=== PATIENT | male | born 1980 | race Caucasian/White ===

== ENCOUNTER 2017-01-23 09:08 | Inpatient (IN) | payer OTHER ==
[2017-01-23] VITALS (17 sets, daily range): BP systolic 129–160; BP diastolic 68–95; PULSE 72–116; RESP 14–30; O2SAT 94–100
[~2017-01-23] VITALS: Ht 162.6 cm; Wt 80.0 kg
--- NOTE | 2017-01-23 09:12 | ED.REPORT ---
HPI-Extremity Problem Lower Date of Service Jan 23, 2017 ED Provider: Nursing Notes Stated Complaint: FEMUR INJURY General Time Seen by MD: 09:11 Edwin Monroy MD Jan 23, 2017 09:12
--- NOTE | 2017-01-23 09:17 | ED.REPORT ---
HPI-Extremity Problem Lower Date of Service Jan 23, 2017 ED Provider: Edwin Monroy MD This is a 36 year old male presenting to the emergency department via EMS due to right leg deformity that occurred just prior to arrival after stepping off into an 6-8 inch hole at while at work. Reports R leg pain above the knee that is rated at 8/10. Denies change LOC. Last PO intake at 07:30 today.En route he was given Ketamine 75 mg, Fentanyl 100 mcg, and Zofran 4 mg. En route, HR 74 and blood pressure 128/74. He denies tetanus immunization and has never been vaccinated previously. Patient denies chest pain, SOB, dizziness, abdominal pain, numbness or tingling in extremities, headache, neck pain, back pain, nausea, or vomiting at this time. Nursing Notes Stated Complaint: FEMUR INJURY Nursing Notes Reviewed: Yes ([employer], meds not reconciled) Allergies: Coded Allergies: No Known Allergies (Unverified , 01/23/17) No Active Prescriptions or Reported Meds General Time Seen by MD: 09:17 Chief Complaint Leg injury right Hx Obtained From: Patient Arrived By: Ambulance Onset Occurred: Just prior to arrival Symptom Duration: Since onset Caused by: Accidental Severity: Current: Moderate Pertinent Negative: Pt denies other symptoms Immunizations: None up to date Recent Healthcare: No recent doctor visit, No recent hospitalization Similar Sx Previous: No Risk-Extremity Prob Lower Well's Criteria for DVT Well's DVT Score: 0 pts (low risk 5%) Past Medical History Past Medical History Patient denies hx of tetanus or other vaccination (and declines offer of immunization initation in the ED) Denies Past Surgical History Denies Smoking History Never Smoker Social History Alcohol Use: Denies alcohol use Ambulatory Status Independent Review of Systems Constitutional: Denies: Chills, Fever Musculoskeletal: Reports: Extremity pain, Extremity swelling, Denies: Back pain, Neck pain Neurologic: Denies: Change LOC, Weakness Complete sys rev & neg: except as marked. Physical Exam Initial Vital Signs Vital Signs (First) Date Time Temp Pulse Resp B/P Pulse Ox O2 Delivery O2 Flow Rate FiO2 01/23/17 09:34 36.8 90 30 137/90 100 Room Air -- Initial VS: Reviewed General/Constitutional: Well-developed, Well-nourished Head / Eyes: Atraumatic, Normocephalic, PERRL ENT: Mucous membranes moist, Conjunctiva normal, No scleral icterus Neck: Supple, Non-tender, Full range of motion Respiratory: Breath sounds normal, Clear to auscultation, No respiratory distress Cardiovascular: Regular rate & rhythm, Heart sounds normal, Intact distal pulses Abdomen / GI: Soft, Non-tender, No guarding, No rebound, No distention Upper Extremities: Vascular intact, Neuro intact, No swelling, No tenderness Skin: Warm, Dry, No cyanosis Neurologic: Alert, Oriented, Nonfocal Psychiatric: Mood/affect normal, Behavior normal, Normal thought content Lower Extremity / Pelvis / MS: Neurologic intact, Vascular intact Deformity in right distal knee and femur. Swelling and pain causing decreased range of motion. There is a small abrasion that does not go through the dermis. Calf compartments are soft, pulses intact. Ankle / Foot: Vascular intact Very small 1mm very superficial abrasion distal right leg along with a larger, but even more superficial abrasion. No findings of an open fracture. Interpretation & Diagnostics R LEG X-RAY IMPRESSION: Comminuted angulated distal femur fracture as discussed, with what appears to be both diagonal and vertically oriented fracture planes. Dictated by: Rakesh Chambers M.D. on 01/23/2017 at 9:48 Approved by: Rakesh Chambers M.D. on 01/23/2017 at 9:49 Lab Results Interpretation Result Diagram: 01/23/17 1040 01/23/17 1040 Test 01/23/17 10:40 White Blood Count 13.3th/mm3 (3.8-10.1) Red Blood Count 4.99mil/mm3 (4.40-5.80) Hemoglobin 16.2g/dL (13.8-17.2) Hematocrit 45.0% (41.0-50.0) Mean Corpuscular Volume 90.2fL (81-100) Mean Corpuscular Hemoglobin 32.5pg (27.0-35.0) Mean Corpuscular Hemoglobin Concent 36.0% (32.0-37.0) Red Cell Distribution Width 12.7% (12.3-15.4) Platelet Count 256bil/L (150-400) Neutrophils (%) (Auto) 83.2% (40-74) Lymphocytes (%) (Auto) 10.5% (14-46) Monocytes (%) (Auto) 5.7% (4-12) Eosinophils (%) (Auto) 0.2% (0-5) Basophils (%) (Auto) 0.2% (0-3) Prothrombin Time 10.7sec (8.1-12.5) Prothromb Time International Ratio 1.00ratio Sodium Level 138mEq/L (134-144) Potassium Level 4.2mEq/L (3.5-5.2) Chloride Level 99mEq/L (97-108) Carbon Dioxide Level 24mmol/L (18-29) Blood Urea Nitrogen 10mg/dL (6-20) Creatinine 0.67mg/dL (0.76-1.27) Estimat Glomerular Filtration Rate 144mL/min (>59) Glucose Level 130mg/dL (60-99) Calcium Level 8.7mg/dL (8.5-10.1) Total Bilirubin 0.8mg/dL (0.0-1.2) Aspartate Amino Transf (AST/SGOT) 29U/L (0-50) Alanine Aminotransferase (ALT/SGPT) 29U/L (0-44) Alkaline Phosphatase 81U/L (25-150) Total Protein 7.1g/dL (6.4-8.4) Albumin 4.2g/dL (3.4-5.0) Lab Results Interpretation: CBC mild leukocytosis, likely [id number] features of clinical infection CMP normal Re-Eval/Medical Decision Med Decision/Clinical Course This is a previously healthy 36-year-old male who presents by EMS with the right lower extremity injury. The patient suddenly walked through the door, and allegedly the floor panel had been removed to allow some work so he stepped through the whole hopping about 6 inches, and in the process is right leg was injured, with concern for possible femur or knee fracture. Patient required fentanyl, some disassociative ketamine, and ondansetron prior to arrival and is now in much improved condition. He denies any additional injuries or complaints. On exam he has a deformity of the distal femur/knee. I do not appreciate gross hemarthrosis of the knee. The leg is neurovascularly intact. There is a very superficial abrasion, does not appear to fully come penetrate dermis - in other words are no findings of a open fracture. However did offer the patient vaccination, consistent turns out he reports or claims that he has not been vaccinated and all-but he declined vaccination here as well. Plain radiographs demonstrate a distal displaced femur fracture. Discussed with orthopedist, and the plan is a knee immobilizer, admission, nothing by mouth status, and a CT scan for operative planning. Source of Hx: EMS Re-Evaluation/Progress : Time of Eval: 10:08 Re-Evaluation/Progress Note: Discussed lab results and need for admission, pt understands and agrees with plan, all questions addressed. Consultation #1: Referral / Consult Name: Dieudonne Mensah DO Consulted With: Orthopedic Call Returned at: 09:47 Honing Machine Operator Tool: Agrees with eval, Agrees with plan Note: Dr. Mensah will review imaging Consultation #2: Referral / Consult Name: Dieudonne Mensah DO Call Returned at: 10:00 Honing Machine Operator Tool: Agrees with eval, Agrees with plan Note: Recommends knee immobilzer and plan for surgery later today or tomorrow Differential Diagnosis: Positive: Fracture, Negative: Abscess, Ankle dislocation, Calcaneal fracture, Cellulitis, Compartment syndrome, Hip fracture, Intertrochanteric fractur, Pelvic fracture, Superficial thrombophleb, Torus fracture, Tripod fracture Counseled Regarding: Diagnosis, Lab results, Need for follow-up, Need for admission Discharge & Departure Impression: Primary Impression: Fracture, femur, distal Encounter type: initial encounter Fracture type: closed Fracture morphology : other fracture Laterality: right Qualified Code: S72.491A - Other fracture of lower end of right femur, initial encounter for closed fracture Disposition: ADMITTED TO HOSPITAL Discharge Condition All VS Reviewed: Yes Condition: Stable Scribe Attestation Portions of this note were transcribed by Saravanan Vazquez. I, Dr. Gomez personally performed the history, physical exam and medical decision-making; I reviewed and confirmed the accuracy of the information in the transcribed note. Signed by Latha Long, 01/23/2017 at 18:00. Vijay Gomez MD Jan 23, 2017 09:17 SARAVANAN VAZQUEZ Jan 23, 2017 09:25
[2017-01-23] MEDS ORDERED: Ondansetron 2 mg/mL 2 mL Inj IVPUSH PRN ×4 (09:25→20:50)
[2017-01-23] MEDS: HYDROmorphone 0.5 mg/0.5 mL iSecure Syringe IVPUSH PRN ×2 (09:41→10:30)
--- NOTE | 2017-01-23 09:50 | DRSVH ---
PROCEDURE: X-RAY RIGHT FEMUR, TWO VIEWS ([id number]) INDICATIONS: trauma TECHNIQUE: 2 views of the femur were acquired. COMPARISON: None. FINDINGS: Bones: No dislocations. No suspicious bony lesions. There is a comminuted fracture involving the d istal femur, the diagonal through the distal metadiaphyseal junction and vertically oriented extendin g into the intercondylar notch, with dorsal angulation below the fracture plane Soft tissues: No suspicious soft tissue calcifications or masses. IMPRESSION: Comminuted angulated distal femur fracture as discussed, with what appears to be both santhosh gonal and vertically oriented fracture planes. Dictated by: Rakesh Chamebrs M.D. on 01/23/2017 at 9:48 Approved by: Rakesh Chambers M.D. on 01/23/2017 at 9:49
[2017-01-23] MEDS ORDERED: Dextrose 5% 500 ML IV SCH (10:12)
[2017-01-23] MEDS ORDERED: HYDROmorphone PCA 0.2 mg/mL 30 mL Inj IV PRN (10:15)
[2017-01-23] MEDS ORDERED: Alum-Mag Hydrox-Simeth 30 mL Suspension PO PRN (10:15)
[2017-01-23] MEDS ORDERED: HYDROmorphone 1 mg/mL Inj IVPUSH ONE (10:25)
[2017-01-23] MEDS: 0.9% Sodium Chloride 1,000 ML IV SCH ×3 (10:58→20:49)
[2017-01-23 11:01] LABS: BASOPHILS % (AUTO) 0.2 % (0-3); EOSINOPHILS % (AUTO) 0.2 % (0-5); MONOCYTES % (AUTO) 5.7 % (4-12); Mean Corpuscular Hemoglobin 32.5 pg (27.0-35.0); Mean Corpuscular Volume 90.2 fL (81-100); NEUTROPHILS % (AUTO) 83.2 % (40-74); Platelet Count 256 bil/L (150-400)
--- NOTE | 2017-01-23 11:59 | DRSVH ---
PROCEDURE: CT FEMUR RIGHT W/O CONTRAST ([id number]) INDICATIONS: distal femur fx, operative planning for Dr. Mensah TECHNIQUE: Noncontrast 3 mm axial sections acquired of the right femur, with coronal and sagittal reformats. Fo r radiation dose reduction, the following was used: automated exposure control, adjustment of mA and /or kV according to patient size. COMPARISON: [facility], CR, XR FEMUR 2VW RT, 01/23/2017, 9:07. FINDINGS: Image quality: Excellent. Bones: Severely comminuted and displaced fracture of the distal femur. There is lateral displacement of the dominant distal femur fracture fragments approximately one shaft width. There is posterior ang ulation of the distal femur fracture fragments. There is also overriding appearance. Scattered areas of intraosseous gas are present in the distal femur diametaphysis. Remaining osseous structures appear intact. There is anatomic alignment to the knee and hip joints. Soft tissues: Knee joint effusion is seen. IMPRESSION: Severely comminuted and displaced distal femur fracture as detailed above. Dictated by: Alexey Lopez M.D. on 01/23/2017 at 11:53 Approved by: Alexey Lopez M.D. on 01/23/2017 at 11:57
--- NOTE | 2017-01-23 12:00 | NUR ---
Admit Pt was admitted to [facility] room 1005 via stretcher. Pt was slid from stretcher to bed 4 person assist with minimal pain. Pt rates pain at 6/10. FLOAT BUILDER Dilaudid to be started. Right leg in brace with 4x4s covering wounds. 4x4s look C/D/I. Pedal pulse present. Pt states he has some baseline numbness in both feet but nothing abnormal. Feet pink and cap refill WNL. BODY DESIGN CHECKER placed. Pt NPO since 729. Will continue to monitor.
--- NOTE | 2017-01-23 16:32 | NUR ---
Pt off Unit Pt off unit to OR. Pt let his family know. Belongings stayed in pt room. SENIOR SALES REPRESENTATIVE d/c'd. Saline Deon'd.
[2017-01-23] MEDS ORDERED: CeFAZolin Inj 2 gm / 50mL D5W IV ONE (16:46)
--- NOTE | 2017-01-23 16:50 | PCM.HPANE ---
Patient Data Surgeon Admitting Provider:Dieudonne Mensah DO Attending Provider:Dieudonne Mensah DO Primary Care Physician:Winter Other Provider:Deven Prabhakar Anesthesia Reason for Visit Rt Femur Fx Ht/WT & BMI Height (Feet): 5 Height (Inches): 4.00 Weight (Kilograms): 80.000 Body Mass Index 30.11 Allergies Coded Allergies: No Known Allergies (Unverified , 01/23/17) Past Anesthesia History Anesthesia History: Denies:: Abnormal Airway, Difficult Intubation Diabetes History Hx Diabetes?: No MRSA MRSA: No Medications Hypertension Medication: No Home Meds Incl Beta Bhavesh: No No Active Prescriptions or Reported Meds History History of ENT Problems?: No HEENT History: Denies:: Abnormal Airway Difficult Intubation Denture Type: None Teeth Condition: Within Normal Limits Hx of Heart Problems?: No Cardiovascular History: Denies:: AICD Abdominal Aortic Aneurism Atrial Fibrillation Cardiac Surgery Chest Pain Congestive Heart Failure Coronary Artery Disease Edema Heart Murmur Hypertension Irregular Heartbeat Pacemaker Peripheral Vascular Rheumatic Fever Thrombophlebitis Valvular Heart Disease Hx of Respiratory Problem?: No Respiratory History: Denies:: Asthma COPD Chest Surgery Cough Dyspnea Emphysema Hemoptysis Oxygen Administration Pneumonia Pulmonary Embolism Tuberculosis Use of C-PAP Machine Use of Inhalers / NEBS Hx Neurologic Problems?: No Neurological History: Denies:: Alzheimer's Disease CVA Dementia Dizziness Headaches Multiple Sclerosis Parkinson's Disease Peripheral Neuropathy Seizures TIA Hx of GI Problems?: No Gastrointestinal History: Denies:: Cirrhosis Diverticulitis Gall Bladder Disease Gastroesphageal Reflux Gastrointestinal Bleeding Heartburn Hepatitis Hiatal Hernia Liver Disease Rectal Bleeding Hx of Problems?: No Genitourinary History: Denies:: HX of Hemodialysis Kidney Stones Urinary Tract Infection Male Hx: Denies:: Prostate Problems Scrotal Mass Testicular Surgery Hx Musculoskeletal Problems?: Yes (RIGHT FEMUR FX) Musculoskeletal History: Denies:: Back Injury Degenerative Joint Fibromyalgia Joint Replacement Musculoskeletal Trauma Myasthenia Gravis Osteoarthritis Rheumatoid Arthritis Systemic Lupus Other History/Comment RIGHT FEMUR FX Hx of Psycho/Social Problems?: No Psycho Social History: Denies:: Anxiety Bipolar Disorder Hx Depression Suicide Attempt Hx Surgeries?: Yes Hx Any Other Health Problems?: No History Blood Transfusions: Positive for:: Accept Blood Products? Denies:: Blood Transfusions Hx Diabetes: No Hx Alcohol Use: Yes (once every few months)Hx Substance Use: No Smoking Status: Never Smoker Have You Smoked inLast 12 mo: No Stop/Bang Treated for Sleep Apnea?: No Do You Have a CPAP Machine?: No Risk Assessment Category Category 1A: Patient has history of documented sleep apnea, and HAS NOT received any narcotic, sedative or anesthesia administration during this stay. Category 1B: Patient has history of documented sleep apnea, and HAS received any narcotic , sedative or anesthesia administration during this stay Category 2: Patient has SUSPECTED Obstructive Sleep Apnea, and HAS received any narcotic , sedative or anesthesia administration during this stay. Category 3: Patient has SUSPECTED Obstructive Sleep Apnea and HAS NOT received narcotic, sedative or anesthesia administration during this stay. Category 4: Outpatient in Procedural Areas with known sleep apnea or who screen positive for High Risk via the STOP/BANG questionnaire. Exam Exam Vital Signs Vital Signs Date Time Temp Pulse Resp B/P Pulse Ox O2 Delivery O2 Flow Rate FiO2 01/23/17 16:32 16 98 01/23/17 14:00 16 97 01/23/17 12:05 16 96 01/23/17 12:01 36.7 72 18 160/95 98 Room Air 01/23/17 11:22 89 14 147/91 100 01/23/17 09:34 36.8 90 30 137/90 100 Room Air General Appearance: Alert, Oriented X3, Cooperative, No Acute Distress HEENT/AIRWAY: MP 2 Lungs: Clear to Auscultation, Normal Air Movement Heart: Exam Unremarkable, Regular Rate/Rhythm, No Murmurs/Rubs/Gallops Meds/Labs/Diagnostics Admission Meds Current Medications Sodium Chloride (Normal Saline) 1,000 ml @ 100 mls/hr Q10H IV Last administered on 01/23/17 11:58; Start 01/23/17 at 10:12 Hydromorphone HCl (Dilaudid Inj) 1 mg ONCE ONCE IVPUSH Last administered on 10:27; Start 01/23/17 at 10:25; Stop 01/23/17 at 10:26; Status DC Midazolam HCl (Versed Inj) 2 mg ONCE ONCE IVPUSH Last administered on 10:58; Start 01/23/17 at 10:35; Stop 01/23/17 at 10:36; Status DC Labs Test 01/23/17 10:40 White Blood Count 13.3th/mm3 (3.8-10.1) Red Blood Count 4.99mil/mm3 (4.40-5.80) Hemoglobin 16.2g/dL (13.8-17.2) Hematocrit 45.0% (41.0-50.0) Mean Corpuscular Volume 90.2fL (81-100) Mean Corpuscular Hemoglobin 32.5pg (27.0-35.0) Mean Corpuscular Hemoglobin Concent 36.0% (32.0-37.0) Red Cell Distribution Width 12.7% (12.3-15.4) Platelet Count 256bil/L (150-400) Neutrophils (%) (Auto) 83.2% (40-74) Lymphocytes (%) (Auto) 10.5% (14-46) Monocytes (%) (Auto) 5.7% (4-12) Eosinophils (%) (Auto) 0.2% (0-5) Basophils (%) (Auto) 0.2% (0-3) Prothrombin Time 10.7sec (8.1-12.5) Prothromb Time International Ratio 1.00ratio Sodium Level 138mEq/L (134-144) Potassium Level 4.2mEq/L (3.5-5.2) Chloride Level 99mEq/L (97-108) Carbon Dioxide Level 24mmol/L (18-29) Blood Urea Nitrogen 10mg/dL (6-20) Creatinine 0.67mg/dL (0.76-1.27) Estimat Glomerular Filtration Rate 144mL/min (>59) Glucose Level 130mg/dL (60-99) Calcium Level 8.7mg/dL (8.5-10.1) Total Bilirubin 0.8mg/dL (0.0-1.2) Aspartate Amino Transf (AST/SGOT) 29U/L (0-50) Alanine Aminotransferase (ALT/SGPT) 29U/L (0-44) Alkaline Phosphatase 81U/L (25-150) Total Protein 7.1g/dL (6.4-8.4) Albumin 4.2g/dL (3.4-5.0) Plan Impression Patient chart reviewed, patient interviewed and anesthestic plan with risks, benefits, and alternatives discussed, and informed consent obtained. ASA Physical Status: ASA1 Normal Healthy Anesthetic Plan: GA Bene/Risks/Altern/Consents: Yes HP Complete Prior to Induction: Yes Blas Restrepo MD Jan 23, 2017 16:50
[2017-01-23] MEDS ORDERED: Lactated Ringer's 500 ML IV PRN (16:51)
[2017-01-23] MEDS ORDERED: Lactated Ringer's 1,000 ML IV ONE (16:51)
[2017-01-23] MEDS ORDERED: Lactated Ringer's 1,000 ML IV SCH (16:51)
[2017-01-23] MEDS ORDERED: fentaNYL-PF 50 mCg/mL 2 mL Inj IVPUSH PRN (16:55)
[2017-01-23] MEDS ORDERED: EPHEDrine Sulfate 50 mg/mL Inj IVPUSH PRN (16:55)
[2017-01-23] MEDS ORDERED: Dexamethasone 4 mg/mL Inj IVPUSH PRN (16:55)
[2017-01-23] MEDS ORDERED: Phenylephrine 10,000 mCg/mL Inj IVPUSH PRN (16:55)
[2017-01-23] MEDS ORDERED: MetoCLOpramide 5 mg/mL 2 mL Inj IVPUSH PRN (16:55)
[2017-01-23] MEDS ORDERED: fentaNYL-PF 50 mCg/mL 2 mL Inj ONE ×2 (17:16→21:15)
[2017-01-23] MEDS ORDERED: Propofol 10,000 mCg/mL 20 mL Inj ONE (17:16)
[2017-01-23] MEDS ORDERED: Ondansetron 2 mg/mL 2 mL Inj ONE (17:16)
[2017-01-23] MEDS ORDERED: Dexamethasone 4 mg/mL Inj ONE (17:16)
[2017-01-23] MEDS ORDERED: Ketamine 10 mg/mL 20 mL Inj ONE (17:16)
--- NOTE | 2017-01-23 18:21 | HP ---
[address] [address] HISTORY AND PHYSICAL PATIENT: RANDI MILES : 1980 MR#: [id number] ADMIT: 01/23/2017 JOB ID: [id number] CHIEF COMPLAINT: Right knee pain. HISTORY OF PRESENT ILLNESS: The patient is a 36-year-old male who was at a job site at work when he stepped through a doorway onto an open floor which he did not realize was open and fell about 3 feet through the floor landing in some pipes, etc. He had immediate onset of severe acute pain and had to be pulled out of the hole and given sedation. He was unable to ambulate after the fall and had severe pain. He works as an product safety engineer. PAST MEDICAL HISTORY: Significant for none stated. ALLERGIES: No known drug allergies. PAST SURGICAL HISTORY: Gypsum teeth removal and he had some postop nausea and vomiting. MEDICATIONS: None. SOCIAL HISTORY: The patient does not smoke. PHYSICAL EXAMINATION: Blood pressure 160/95, pulse rate 72, respirations 18, temperature 36.7. He is alert and cooperative, in no acute distress. He denies any pain with range of motion of his bilateral upper extremities. No pain with range of motion of the cervical spine. Lungs are clear to auscultation. Heart has regular rate and rhythm. Right knee has an abrasion over the superior patellar region with a small wound with bleeding and a 2nd abrasion over the distal tibial tubercle region. Otherwise, his skin is intact. He has pain with any attempt at range of motion of the knee. He is able to move his toes. His foot is warm, pink, and well perfused. His sensation of the foot is intact. Dorsalis pedis pulse +2. No calf pain or tenderness. No pain with range of motion of the left lower extremity. IMAGING: X-rays demonstrate right distal femur comminuted fracture with intercondylar split. CT scan demonstrates simple intercondylar split with emphysema ASSESSMENT: Grade 1 open Right distal femur fracture with intercondylar split extension. PLAN: We discussed treatment options for this, and I recommend open reduction and internal fixation of his fracture. We discussed the risks, benefits, and possible complications of the procedure. All questions were answered and the patient wished to proceed. Will plan for surgery today as the patient is in significant distress, and I am concerned about continued ongoing blood loss if we delay surgery and also that he would likely develop muscle spasms and could cause additional muscular damage with a delay in surgery. Anticipate that he will be in the hospital for 2-3 days and will need to be nonweightbearing on the right lower extremity for 8-12 weeks. Anticipate that he will need to be off of work for 4-6 months. LISSA
[2017-01-23] MEDS ORDERED: Ropivacaine-PF 0.5% 30 mL Inj INFILTRATE ONE (20:30)
[2017-01-23] MEDS ORDERED: HYDROmorphone 2 mg/mL Inj IVPUSH PRN (20:50)
[2017-01-23] MEDS ORDERED: Polyethylene Glycol (PEG) 17 Gm Powder PO PRN (20:50)
[2017-01-23] MEDS ORDERED: Magnesium Hydroxide 10 mL Oral Concentration PO PRN (20:50)
[2017-01-23] MEDS ORDERED: HYDROcodone-APAP 7.5-325 mg Tablet PO PRN (20:50)
[2017-01-23] MEDS ORDERED: diphenhydrAMINE 25 mg Capsule PO PRN (20:50)
[2017-01-23] MEDS ORDERED: Acetaminophen IV 1,000 MG in IV Premix 1 EACH IV ONE (21:05)
[2017-01-23] MEDS ORDERED: Lactated Ringer's 500 ML IV ONE (21:14)
[2017-01-23] MEDS: HYDROmorphone 1 mg/mL Inj ONE ×2 (21:27→21:30)
[2017-01-23] MEDS ORDERED: HYDROmorphone 1 mg/mL Inj IVPUSH PRN (21:50)
[2017-01-23] MEDS ORDERED: HYDROmorphone 0.5 mg/0.5 mL iSecure Syringe IVPUSH PRN (22:35)
[2017-01-23] MEDS: hydrOXYzine Pamoate 25 mg Capsule PO PRN (22:52)
[2017-01-23] MEDS ORDERED: Acetaminophen IV 1,000 MG in IV Premix 1 EACH IV PRN (23:00)
[2017-01-23] MEDS: HYDROmorphone PCA 0.2 mg/mL 30 mL Inj IV PRN (23:08)
--- NOTE | 2017-01-23 23:09 | OP ---
[address] [address] OPERATIVE REPORT PATIENT: RANDI MILES : 1980 MR#: [id number] ADMIT: 01/23/2017 JOB ID: [id number] DATE OF SURGERY: 01/23/2017 PREOPERATIVE DIAGNOSIS(ES): Right grade 1 open distal femur fracture with intercondylar split. POSTOPERATIVE DIAGNOSIS(ES): Right grade 1 open distal femur fracture with intercondylar split. PROCEDURE: Right distal femur open reduction and internal fixation. SURGEON: Dieudonne Mensah DO. ANESTHESIA: General. INDICATIONS: The patient is a 36-year-old male who fell at work onto an open floor sustaining a right comminuted intra-articular distal femur fracture. He was brought to the emergency department and I was consulted. We performed a CT scan to evaluate the extent of the comminution. He was found to have significant comminution in the distal metaphyseal area as well as an intercondylar split which was relatively simple. He was also noted to have emphysema within the wound on CT scan indicating an open fracture, as well as a small puncture wound which was draining blood over the anterior thigh. We discussed treatment options for this and he wished to proceed with open reduction and internal fixation. We discussed the risks, benefits and possible complications of surgery including, but not limited to, injury to nerves and vessels, infection, bleeding, incomplete relief of symptoms, malunion, nonunion, need for additional procedures, stiffness, as well as blood clots. The patient had good understanding. All questions were answered and e wished to proceed. A medical surgical tech was required for the successful completion of this procedure. PROCEDURE IN DETAIL: The patient was brought to the operating room. He was given a preoperative antibiotic and general anesthetic. The right lower extremity was sterilely prepped and draped. We used a sterile tourniquet for hemostasis intraoperatively. An incision was made over the lateral distal femur curving from the distal femur toward the tibial tubercle. Dissection was carefully carried through subcutaneous tissue and the fascia was incised in line with the skin incision, and then a separate layer was maintained for the joint capsule, which was incised and hematoma was encountered. The wound was then copiously irrigated with pulsed lavage irrigation and then the fracture was reduced with a combination of traction applied by the assistant teaching professor, a bump in manual manipulation of the fracture fragments. I reduced the fracture anatomically in the articular portion and then secured this with a pin and a periarticular clamp, then used a 6.5 cancellous screw to hold the fracture reduction. I placed a second screw, however, this slightly lost some slight reduction; and therefore, the second screw was removed. The first screw was retightened and the reduction was confirmed. Next, the distal fragment was reduced to the proximal fragment using a Verbrugge clamp. This was reduced and then a Synthes 8 hole distal femur locking variable angle locking plate was slid up submuscularly up the thigh, secured distally with a periarticular clamp and then a guidewire placed parallel to the joint surface, and then a guidewire proximally placed percutaneously using the targeting arm. There was still some slight displacement of the shaft on the distal fragment and I secured it with a cortical screw in the distal portion of the shaft in order to bring the plate to the shaft and then place the locking screw distally, an additional two cortical screws into the proximal fragment and multiple distal locking screws all having excellent purchase, as well as a locking screw at the proximal most aspect, yielding an excellent construct with satisfactory alignment and reduction. The wound was further irrigated with pulsatile lavage. The C-arm was used to confirm final reduction and satisfactory alignment with anatomic joint surface reduction. The wound was then closed with 0 Vicryl to close the joint capsule, a second layer to close the fascia and the subcu was closed with 2-0. The skin was closed with megha. Naropin was added as an adjunct local anesthetic. Sterile dressings were applied. Patient tolerated the procedure well. Blood loss was 100 cc. POSTOPERATIVE PROTOCOL: Have the patient remain nonweightbearing on the right lower extremity for a likely period of 8-12 weeks. Keep him in the hinged knee brace locked in full extension and he can likely begin some range of motion at about four weeks assuming his pain and swelling are under good control, and will have him on Lovenox for DVT prophylaxis for 21 days postoperatively.
[2017-01-24 00:23] VITALS: BP 132/87; PULSE 105; RESP 17; O2SAT 97
[2017-01-24] MEDS: Sodium Chloride LOK Flush 10 mL Syringe IV SCH ×3 (00:30→13:43)
[2017-01-24] MEDS: Acetaminophen IV 1,000 MG in IV Premix 1 EACH IV SCH ×4 (00:52→14:42)
[2017-01-24] MEDS: CeFAZolin Inj 2,000 MG in Dextrose 5% 50 ML IV SCH ×2 (01:34→10:35)
[2017-01-24] MEDS: 0.9% Sodium Chloride 1,000 ML IV SCH ×3 (03:53→20:49)
[2017-01-24] MEDS: hydrOXYzine Pamoate 25 mg Capsule PO PRN ×3 (03:55→16:55)
[2017-01-24 05:41] LABS: BASOPHILS % (AUTO) 0 % (0-3); EOSINOPHILS % (AUTO) 0 % (0-5); MONOCYTES % (AUTO) 7.2 % (4-12); Mean Corpuscular Hemoglobin 32.4 pg (27.0-35.0); Mean Corpuscular Volume 91.9 fL (81-100); NEUTROPHILS % (AUTO) 86.4 % (40-74); Platelet Count 232 bil/L (150-400)
[2017-01-24 05:46] VITALS: BP 104/64; PULSE 88; RESP 17; O2SAT 98
[2017-01-24 06:08] VITALS: RESP 16; O2SAT 98
--- NOTE | 2017-01-24 06:09 | NUR ---
1st post-op day Taking PO well, no nausea. IV TKO'd with PULMONARY FELLOW. Pain reduced to level 1-2. Rt foot toes pink / warm / brisk cap refill. Herb SHARPE'd at 0600 awaiting 1st void. Plan for transition to PO pain meds.
[2017-01-24] MEDS: HYDROmorphone PCA 0.2 mg/mL 30 mL Inj IV PRN (07:06)
[2017-01-24 07:50] VITALS: BP 122/67; PULSE 90; RESP 18; O2SAT 98
[2017-01-24] MEDS: Senna-Docusate 8.6-50 mg Tablet PO SCH ×2 (08:53→20:21)
--- NOTE | 2017-01-24 11:10 | PCM.PNORTH ---
Subjective Date of Service: Jan 24, 2017 Visit Information: Reason for Visit Rt Femur Fx Surgery/Surgery Date Post-Op Day # Date of Admission: Jan 23, 2017 at 10:49 Hospital Day # Subjective Status post day #1 right femur ORIF. Patient states he is doing. He just work with physical therapy and was able to get around extremely well and Marquez from physical therapy states he would be cleared to go today as long as everything else looks good. Patient is comfortable going home and states that he will have significant help there. He feels like he will do the best on the crutches to take home and would like to work towards that. States that his pain is around a 1 out of 10 right now. Postop General: No Complaints, No Shortness of Breath, No Chest Pain Objective Exam Objective Patient is alert and oriented 3. Answering questions appropriately. Sitting up in bed and not in any acute distress today. Brace is in good position. Dressing is clean dry and intact. Patient able to wiggle toes. Calf is soft and non-tender, pulses intact, sensation is full. Patient discontinued the QUALITY ASSURANCE SUPERVISOR FINAL around 9:30 and was placed on oral narcotics. Vital Signs and I/O Vital Sign - Last Date Time Temp Pulse Resp B/P Pulse Ox O2 Delivery O2 Flow Rate FiO2 01/24/17 07:50 36.9 90 18 122/67 98 Room Air 01/23/17 21:40 2 Intake and Output 01/23/17 01/23/17 01/24/17 Cumulative From/Thru 15:00 23:00 07:00 01/23/17 09:34 - 01/24/17 06:07 Intake Total 1000 ml 550 ml 2658 ml 4208 ml Output Total 350 ml 1750 ml 2100 ml Balance 1000 ml 200 ml 908 ml 2108 ml Intake Oral 0 ml 1676 ml 1676 ml IV Total 1000 ml 550 ml 982 ml 2532 ml Output Urine Total 350 ml 1750 ml 2100 ml # Bowel Movements 0 0 Lab & Micro Results Laboratory Tests Test 01/24/17 04:48 White Blood Count 13.8th/mm3 (3.8-10.1) Red Blood Count 4.42mil/mm3 (4.40-5.80) Hemoglobin 14.3g/dL (13.8-17.2) Hematocrit 40.6% (41.0-50.0) Mean Corpuscular Volume 91.9fL (81-100) Mean Corpuscular Hemoglobin 32.4pg (27.0-35.0) Mean Corpuscular Hemoglobin Concent 35.2% (32.0-37.0) Red Cell Distribution Width 12.6% (12.3-15.4) Platelet Count 232bil/L (150-400) Neutrophils (%) (Auto) 86.4% (40-74) Lymphocytes (%) (Auto) 6.3% (14-46) Monocytes (%) (Auto) 7.2% (4-12) Eosinophils (%) (Auto) 0% (0-5) Basophils (%) (Auto) 0% (0-3) Sodium Level 140mEq/L (134-144) Potassium Level 4.4mEq/L (3.5-5.2) Chloride Level 104mEq/L (97-108) Carbon Dioxide Level 20mmol/L (18-29) Blood Urea Nitrogen 9mg/dL (6-20) Creatinine 0.82mg/dL (0.76-1.27) Estimat Glomerular Filtration Rate 114mL/min (>59) Glucose Level 132mg/dL (60-99) Calcium Level 8.3mg/dL (8.5-10.1) Result Diagram: 01/24/17 0448 01/24/17 0448 Assessment & Plan Impression Status post day #1 right femur fracture ORIF. Patient doing very well. Patient has used the restroom, has been cleared by physical therapy, pain is well controlled, eating without vomiting. Patient will need to make sure pain is controlled on oral narcotics for a few hours before considering discharge. Problems: Plan Patient will continue to work with physical therapy while in the hospital and will remain nonweightbearing with crutches. This will remain in place for 8-12 weeks until he is cleared with radiographs from a provider at our clinic. We will plan to begin range of motion out 4 weeks postoperatively, until then remain in the base and keep the brace locked at 0. Patient will take Lovenox injections once daily to the abdomen for 21 days, once this is finished he will take aspirin 325 mg tablets by mouth twice a day for 3 more weeks for a total of 6 weeks of DVT prophylaxis. Keep the dressing clean dry and intact and the brace on at all times until seen at your two-week postoperative appointment. Avoid getting this wet. Anticipated the patient will be able to be discharged to home this afternoon. We will most likely discharge on Percocet as long as pain is controlled for the next few hours off of the QUALITY ASSURANCE SUPERVISOR FINAL. Patient will need to follow-up at 2 weeks at [facility] for postoperative appointment with Delbert SCHAFER. Eddi De Dios PA-C Jan 24, 2017 11:07
[2017-01-24 13:11] VITALS: BP 131/84; PULSE 104; RESP 18; O2SAT 97
[2017-01-24] MEDS ORDERED: Acetaminophen IV 1,000 MG in IV Premix 1 EACH IV PRN (14:05)
--- NOTE | 2017-01-24 14:11 | NUR ---
Social Work- Brief Note Data: EMR reviewed. Pt is a 36 year old male admitted 01/23/17 for right femur fracture per H&P. Pt's insurance is [facility] and [facility]. Pt has no PCP- pt states he saw an MD through [facility] at one time but has not established care. SHANNON met with pt at bedside regarding discharge plan, SW role explained. Pt alert and oriented x3. Pt resides in [place] with his and two children where he remains independent at base. Pt lives in a th century home with multiple levels and many stairs. Pt states he has PT evaluated pt, recommending HHPT to continue practice and education regarding safe stair negotiation. SW received call from Lewis Smith RN CM through [facility] [phone], who is following pt's clinical course. SHANNON faxed clinicals to [facility] at [phone]. Lewis to facilitate coordination of HH services and DME. SHANNON spoke with pt and pt's Ruma Contreras [phone] who feels that pt will need hospital bed, fww, bath bench, and raised toilet seat at discharge. SW to obtain scripts for these items then fax to [facility] at [facility]. Pt's states she would like PT and OT through Home Health. SHANNON provided HH choice list to family who requested an hour to think about company choice. SW to follow up with family regarding HH choice, make referral. F2F in folder to be completed. Pt to discharge home with DME and HH RN PT OT with to transport via POV. SW will continue to follow. Assessment: Pt who would benefit from HH and DME. Plan: SW to follow up regarding pt's HH choice. F2F in folder to be completed. DME scripts to be faxed to Lewis at [facility], [facility] to facilitate obtaining these items. Pt to discharge home with DME and HH RN PT OT with to transport via POV. SW will continue to follow. Kathleen Cole COMMUTATOR OPERATOR
[2017-01-24] MEDS ORDERED: HYDROcodone-APAP 10-325 mg PO PRN (14:35)
--- NOTE | 2017-01-24 19:10 | NUR ---
PAIN/POST-OP PROGRESS 1335 Care taken from Meme Ferreira at 1335. Patient rated his pain as 7/10 stating that the Hydrocodone was not effective for pain control. Toradol IV administered. Patient is noted to be anxious at this time. Call out made to [facility] Ochoa. 1445 Paul De Dios came in to assess the patient. Hydrocodone order was increased. IV APAP administered. Patient rated his pain as 4/10 at this time, which is tolerable for him. 1655 Patient stated that he went to use the bathroom and was in there for a while. He stated that he feels that there is something wrong with his leg because his pain has increased to 8/10. Orthos are WNL. Patient complained of spasms. Hydrocodone 10 mg/APAP and Vistaril administered. Eddi De Dios made aware. No new orders at this time. 1805 Dr. Mensah rounded on the patient this afternoon. No new orders received. IV Dilaudid administered. Patient has been tolerating his liquids PO and his diet well. Denies nausea. No emesis noted. Denies SOB. Patient has been able to ambulate with the FWW and SBA. Tolerated is fairly. Voiding without any problems. Dressing is CDI. Immobilizer is in place at all times. Care continues.
[2017-01-24 19:40] VITALS: BP 138/79; PULSE 94; RESP 16; O2SAT 96
[2017-01-25] MEDS: hydrOXYzine Pamoate 25 mg Capsule PO PRN ×4 (00:26→13:21)
[2017-01-25] MEDS: Sodium Chloride LOK Flush 10 mL Syringe IV SCH ×2 (04:27→07:44)
[2017-01-25] MEDS: 0.9% Sodium Chloride 1,000 ML IV SCH ×2 (04:49→07:44)
[2017-01-25 05:16] VITALS: BP 131/80; PULSE 73; RESP 16; O2SAT 97
[2017-01-25 05:24] LABS: BASOPHILS % (AUTO) 0.2 % (0-3); EOSINOPHILS % (AUTO) 0.2 % (0-5); MONOCYTES % (AUTO) 8.3 % (4-12); Mean Corpuscular Hemoglobin 32.3 pg (27.0-35.0); NEUTROPHILS % (AUTO) 66.2 % (40-74); Platelet Count 206 bil/L (150-400)
--- NOTE | 2017-01-25 07:15 | PCM.PNORTH ---
Subjective Date of Service: Jan 25, 2017 Visit Information: Reason for Visit Rt Femur Fx Surgery/Surgery Date Post-Op Day # Date of Admission: Jan 23, 2017 at 10:49 Hospital Day # Subjective Wound patient awake and alert this morning in good spirits. Myself and the patient's night nurse and the patient had a long discussion this morning about his pain control and we discussed various options regarding what would be most efficacious. I have discussed that we need to discontinue Toradol IV as soon as we are able. Patient has most recently been using Roxicodone 10 mg with measured success. He feels that this does not hold him for physical therapy sessions. I have talked with the nursing staff this morning and I will outline some options in my plan. Patient indicates that his employer is planning to set him up with a hospital bed and some other items. I will discuss this with social media senior associate. Patient's father is in attendance at bedside and spending the night. Postop General: No Complaints, No Shortness of Breath, No Chest Pain Pain Management: PO, IV Push Objective Exam Objective Alert and oriented 3 and pleasant. Interoperative dressing clean dry and intact. Rehabilitation knee arthrosis in place locked in extension and working. Adjusted brace for appropriate position. Check locks [place] and sensation intact to right lower extremity distally. Calf and thigh are soft and nontender. Estevez absent Gait 50 feet with formal therapy on 01/24/2017. Recommendation for discharge to home with home health PT Vital Signs and I/O Vital Sign - Last Date Time Temp Pulse Resp B/P Pulse Ox O2 Delivery O2 Flow Rate FiO2 01/25/17 05:16 37.1 73 16 131/80 97 Room Air 01/23/17 21:40 2 Intake and Output 01/24/17 01/24/17 01/25/17 Cumulative From/Thru 15:00 23:00 07:00 01/23/17 09:34 - 01/25/17 05:16 Intake Total 1240 ml 800 ml 6248 ml Output Total 750 ml 2850 ml Balance 1240 ml 50 ml 3398 ml Intake Oral 1240 ml 800 ml 3716 ml IV Total 2532 ml Output Urine Total 750 ml 2850 ml # Voids 4 4 # Bowel Movements 0 0 Lab & Micro Results Laboratory Tests Test 01/25/17 05:05 White Blood Count 11.5th/mm3 (3.8-10.1) Red Blood Count 4.03mil/mm3 (4.40-5.80) Hemoglobin 13.0g/dL (13.8-17.2) Hematocrit 37.9% (41.0-50.0) Mean Corpuscular Volume 94.0fL (81-100) Mean Corpuscular Hemoglobin 32.3pg (27.0-35.0) Mean Corpuscular Hemoglobin Concent 34.3% (32.0-37.0) Red Cell Distribution Width 12.7% (12.3-15.4) Platelet Count 206bil/L (150-400) Neutrophils (%) (Auto) 66.2% (40-74) Lymphocytes (%) (Auto) 24.8% (14-46) Monocytes (%) (Auto) 8.3% (4-12) Eosinophils (%) (Auto) 0.2% (0-5) Basophils (%) (Auto) 0.2% (0-3) Result Diagram: 01/25/17 0505 01/24/17 0448 General Appearance: Alert, Oriented X3, Cooperative, No Acute Distress Extremities: No Compartment Syndrom Noted, Thigh & Calf Soft/Nontender Postop Sensory Motor: Distal Motor Intact, Movement in Toes, Distal Sensation Intact Activity: Activity per PT, Ambulate with PT (strict nonweightbearing at the right lower extremity using bilateral axillary crutches.) Catheters: None Assessment & Plan Impression Jeff bennett is a 36-year-old male who is undergone a right distal femur ORIF on 01/23/2017. He has been up with physical therapy using bilateral axillary crutches and is in the process of working at his pain control regime. Problems: Plan Postop day #1 from right distal femur ORIF performed on 01/23/[address] Dieudonne Mensah. Strict nonweightbearing on the right lower extremity 8-12 weeks using bilateral axillary crutches. Rehabilitation knee arthrosis should remain in place and locked at 0 flexion at all times. Continue formal outpatient physical therapy for mobility, gait and safety with crutch and stair training.. Anticipate initiation of gentle range of motion at 4 weeks postop. Continue by mouth pain medication with use of Percocet 10 with the addition of oxycodone 5 for breakthrough if needed. Continue Lovenox 40 mg subcutaneous 3 weeks postop with transition to ASA 325 mg EC by mouth twice a day for an additional 3 weeks totaling 6 weeks postoperative DVT prophylaxis. Keep intraoperative dressing clean dry and intact until seen in office in 2 weeks. Follow-up in 2 weeks at [facility] orthopedic clinic with KEILY Daigle for wound check and suture removal. Follow up in 6 weeks at [facility] orthopedic clinic with Dr. Dieudonne Mensah with right two-view high knee x-rays on arrival. Anticipate discharge today on 01/25/2017 to home with family has caregivers and outpatient physical therapy for mobility, gait, crutch and stair training and safety. VTE Prophylaxis: Sub-Q Enoxaparin (Lovenox 40 mg subcutaneous daily 3 weeks postop with transition to ASA 325 mg EC by mouth twice a day for an additional 3 weeks totaling 6 weeks postoperative DVT prophylaxis.), SCDs (SCD and left lower extremity) Filemon Tavares PA-C Jan 25, 2017 07:15
[2017-01-25] MEDS: Senna-Docusate 8.6-50 mg Tablet PO SCH (07:44)
[2017-01-25 07:49] VITALS: BP 142/90; PULSE 89; RESP 16; O2SAT 94
[2017-01-25] MEDS: oxyCODONE-Acetamin 10-325 mg Tablet PO PRN ×2 (08:28→13:21)
--- NOTE | 2017-01-25 12:55 | NUR ---
PAIN Patient rated his pain as 3/10 this morning prior to PT. Percocet 1 tab + Oxicodone 5 mg PO administered prior to PT. Per patient his pain is 0/10 after but this made him sleepy. Instructed patient RE: Pain medication administration and pain regimen at home. Lovenox instructions were given to the patient and his . Lovenox teaching kit was given to them and they both verbalized understanding. Cristel-The patients was able to administer the Lovenox injection this morning without any issues noted.
--- NOTE | 2017-01-25 13:38 | PCM.DIORTH ---
Ortho Discharge Instruction Date of Service: Jan 25, 2017 Dates of Hospitalization Date of Hospital Admission Jan 23, 2017 at 10:49 Providers Admitting Physician: Dieudonne Mensah DO Primary Care Physician: Nopcp Attending Physician: Dieudonne Mensah DO Diet Discharge Diet: No restrictions Activity Discharge Activity-General: Try not to overdue, Be up and about, Balance rest and activity, Ice incision 3-5 time/day for 20min, Activity as pain allows, Activity as energy allows, No driving while taking narcotic Right Lower Extremity: Non-weight Bearing Discharge Assist Device: Crutches (bilateral axillary crutches) Dressing and Incisional Care Discharge Dressing Care: Keep dressing clean, dry & intact Discharge Hygiene: No showering, DO NOT soak incision under water, NO bathtub, hot tub or whirlpool Additional Instructions Discharge Instructions Postop day #1 from right distal femur ORIF performed on 01/23/[address] Dieudonne Mensah. Strict nonweightbearing on the right lower extremity 8-12 weeks using bilateral axillary crutches. Rehabilitation knee arthrosis should remain in place and locked at 0 flexion at all times. Continue formal outpatient physical therapy for mobility, gait and safety with crutch and stair training.. Anticipate initiation of gentle range of motion at 4 weeks postop. Continue by mouth pain medication with use of Percocet 10 with the addition of oxycodone 5 for breakthrough if needed. Continue Lovenox 40 mg subcutaneous 3 weeks postop with transition to ASA 325 mg EC by mouth twice a day for an additional 3 weeks totaling 6 weeks postoperative DVT prophylaxis. Keep intraoperative dressing clean dry and intact until seen in office in 2 weeks. Follow-up in 2 weeks at [place] orthopedic clinic with KEILY Daigle for wound check and suture removal. Follow up in 6 weeks at [facility] orthopedic clinic with Dr. Dieudonne Mensah with right two-view high knee x-rays on arrival. Anticipate discharge today on 01/25/2017 to home with family has caregivers and outpatient physical therapy for mobility, gait, crutch and stair training and safety. Follow Up Plan Follow Up Plan Follow-up in 2 weeks, 6 weeks and 12 weeks postoperatively. Follow up when necessary in the interim. Follow-up Provider (F9): Dieudonne Mensah DO Mid-level Provider (F9): Corrina Boucher PA-C Follow-up appointment: Weeks (follow-up in 2 weeks at [facility] orthopedic clinic for wound check and suture removal with mid-level provider.) Call your provider for: Fever, Chills, Shortness of breath, Vomitting, Drainage at incision Filemon Tavares PA-C Jan 25, 2017 13:38
[2017-01-25] MEDS ORDERED: DOCU-41 PO (13:47)
[2017-01-25] MEDS ORDERED: OXYC-466 PO (13:47)
[2017-01-25] MEDS ORDERED: OXYC5TAB72 PO (13:47)
[2017-01-25] MEDS ORDERED: HYDR-3797 PO (13:47)
[2017-01-25] MEDS ORDERED: ASPI-235 PO (13:47)
[2017-01-25] MEDS ORDERED: ENOX40DI8 SUBQ (13:47)
[2017-01-25 14:45] VITALS: BP 143/87; PULSE 103; RESP 16; O2SAT 97
--- NOTE | 2017-01-25 16:45 | NUR ---
Social Work: Discharge Data & Assessment: delivery sales worker faxed patient's home health orders and DME orders to Carl Rosado CM, at [phone] and [phone]. Patient's DME was delivered. Patient was referred to [facility] and [facility] was given access to patient's chart. Patient will discharge home via POV. SHANNON will continue to follow. Plan: Patient discharging home via POV with [facility] and crutches, HB, WC and elevated toilet seat were delivered by [facility]. SHANNON notified Vahid at [facility] that Dr. Mensah will follow and sign for HINA.
--- NOTE | 2017-01-25 17:37 | NUR ---
DISCHARGE Patients pain level is 4/10. Patient stated that his pain is tolerable at 2-4/10. Current pain regimen has been adequate for pain relief. Tolerating liquids PO and his diet well. Denies nausea. No emesis noted. Denies SOB. Patient has been able to transfer in the room with SBA and the FWW. Tolerated activity well. Dressing and immobilizer is in place. Dressing is CDI. Orthos WNL. Voiding without any problems noted. IV saline lock d/cd. Discharge instructions, care notes and prescription was given to the patient and his and they both verbalized understanding. Discharge to home with his and all his personal belongings. (Copy of D/C is in the chart).
--- NOTE | 2017-01-30 12:29 | PCM.DC.ORT ---
Discharge Summary Date of Service: Jan 30, 2017 Date of Hospital Admission: Jan 23, 2017 at 10:49 Date of Surgery: Jan 23, 2017 Date of Discharge: Jan 25, 2017 Reason for Hospitalization: Right distal femur fracture Procedures Performed: Right distal femur ORIF Hospital Course: Patient was admitted through the ED on 01/23/[address] Dieudonne Rashid. He was ultimately taken to the operating room on 01/23/2017 and underwent a right distal femur ORIF procedure. Upon awakening from surgery he was taken to the postoperative care unit and upon recovery from anesthesia and was taken to the orthopedic care unit where he continued his recovery and increased his mobility and ultimately was discharged on 01/25/2017 to home. Diagnosis at Time of Discharge Status post right distal femur open reduction and internal fixation. Discharge to home Problems: (1) Femur fracture, right Status: Acute ICD Code: S72.91XA Disposition: Discharge to home Orthopedic Follow up Plan: In Two Weeks in my clinic (follow-up in 2 weeks at [facility] orthopedic clinic with [facility] provider for wound check and suture removal.) Discharge Instructions: Postop day #1 from right distal femur ORIF performed on 01/23/[address] Dieudonne Mensah. Strict nonweightbearing on the right lower extremity 8-12 weeks using bilateral axillary crutches. Rehabilitation knee arthrosis should remain in place and locked at 0 flexion at all times. Continue formal outpatient physical therapy for mobility, gait and safety with crutch and stair training.. Anticipate initiation of gentle range of motion at 4 weeks postop. Continue by mouth pain medication with use of Percocet 10 with the addition of oxycodone 5 for breakthrough if needed. Continue Lovenox 40 mg subcutaneous 3 weeks postop with transition to ASA 325 mg EC by mouth twice a day for an additional 3 weeks totaling 6 weeks postoperative DVT prophylaxis. Keep intraoperative dressing clean dry and intact until seen in office in 2 weeks. Follow-up in 2 weeks at [facility] orthopedic clinic with KEILY Daigle for wound check and suture removal. Follow up in 6 weeks at [facility] orthopedic clinic with Dr. Dieudonne Mensah with right two-view high knee x-rays on arrival. Anticipate discharge today on 01/25/2017 to home with family has caregivers and outpatient physical therapy for mobility, gait, crutch and stair training and safety. Follow Up Plan Management Plan: Patient will be seen at 2 weeks, 6 weeks and 12 weeks postoperatively. Patient will be seen when necessary in the interim. Aspirin (Lite Coat Aspirin) 325 Mg Tablet 325 MG PO BID Begin when Lovenox course is completed and used for 3 weeks.. Docusate Sodium (Colace) 100 Mg Capsule 100 MG PO BID Enoxaparin Sodium (Enoxaparin Sodium) 40 Mg/0.4 Ml Syringe 40 MG SUBQ Q24 Hydroxyzine Pamoate (HydrOXYzine Pamoate) 25 Mg Capsule 25 MG PO Q4H PRN PRN For Spasm and/or Restlessness oxyCODONE (oxyCODONE) 5 Mg Tablet 5 MG PO Q4H PRN PRN For Breakthrough Pain oxyCODONE-Acetaminophen 10-325 mg (oxyCODONE-Acetaminophen 10-325 mg) 1 Each Tablet 1 TAB PO Q4-6H PRN PRN For SEVERE Pain Filemon Tavares PA-C Jan 30, 2017 12:29
== END 2017-01-25 17:17 | disposition home health service (06) | DRG 482 ==
LOC: SED 09:08 → EDBD 09:08 → OSC 10:49
PROVIDERS: ADMIT Orthopaedic Surgery; ATTEND Orthopaedic Surgery
PROC: 0QSB04Z Reposition Right Lower Femur with Internal Fixation Device, Open Approach (ICD-10-PCS; principal; 2017-01-23 16:00)
DX: S72.401B Unspecified fracture of lower end of right femur, initial encounter for open fracture type I or II (principal); W17.2XXA Fall into hole, initial encounter; Y92.69 Other specified industrial and construction area as the place of occurrence of the external cause; Y99.0 Civilian activity done for income or pay